=== PATIENT | female | born 1970 | race Caucasian/White ===

== ENCOUNTER 2017-01-05 20:00 | Emergency (ER) | payer MEDICAID ==
[2017-01-05 21:37] LABS: UA SPECIFIC GRAVITY 1.025 (1.005-1.035); microscopic required? YES; urine erythrocyte 2+ (NEGATIVE)
[2017-01-05 21:45] LABS: BASOPHIL % 0.6 % (0-2); PLATELET COUNT 317 x10^3mcL (130-400)
[2017-01-05 21:46] LABS: RED CELL DISTRIBUTION WIDTH 16.7 % (11.5-14.5)
[2017-01-05 23:15] VITALS: BP 127/75
== END 2017-01-05 23:15 | disposition home or self-care (01) ==
LOC: ED 20:00
PROVIDERS: Emergency Medicine
DX: O03.4 Incomplete spontaneous abortion without complication (principal); I10 Essential (primary) hypertension; Z79.899 Other long term (current) drug therapy
CPT/HCPCS: 36415

== ENCOUNTER 2018-12-05 16:25 | Emergency (ER) | payer MEDICAID ==
[~2018-12-05] VITALS: Ht 162.6 cm; Wt 117.5 kg
[2018-12-05 16:49] VITALS: Ht 162.6 cm; Wt 117.5 kg
[2018-12-05 17:37] LABS: BASOPHIL % 0.5 % (0-2); PLATELET COUNT 345 x10^3mcL (130-400)
[2018-12-05 17:38] LABS: RED CELL DISTRIBUTION WIDTH 15.1 % (11.5-14.5)
[2018-12-05 17:47] LABS: CALCIUM 9.4 mg/dL (8.5-10.1); CARBON DIOXIDE 30.2 mmol/L (21-32); CHLORIDE SERUM 99 mmol/L (98-107); CREATININE SERUM 0.9 mg/dL (0.6-1.0); GFR1 > 60 mL/min; GLUCOSE SERUM 122 mg/dL (74-106); POTASSIUM SERUM 3.5 mmol/L (3.5-5.1); SODIUM SERUM 138 mmol/L (136-145)
[2018-12-05 17:53] LABS: ALKALINE PHOSPHATASE 71 U/L (46-116); ALT/SGPT 22 U/L (14-59); AST/SGOT 17 U/L (15-37); BILIRUBIN TOTAL 0.43 mg/dL (0.20-1.00); LIPASE 111 IU/L (73-393); TOTAL PROTEIN, SERUM 7.7 g/dL (6.4-8.2)
[2018-12-05 17:55] LABS: ALBUMIN 3.1 g/dL (3.4-5.0)
[2018-12-05 19:48] VITALS: BP 160/86
== END 2018-12-05 19:48 | disposition home or self-care (01) ==
LOC: ED 16:25
PROVIDERS: Emergency Medicine
DX: R10.13 Epigastric pain (principal); R10.11 Right upper quadrant pain; I10 Essential (primary) hypertension; E11.9 Type 2 diabetes mellitus without complications; Z98.890 Other specified postprocedural states
CPT/HCPCS: 36415; J1885; Q0092